=== PATIENT | female | born 1950 | race Caucasian/White ===

== ENCOUNTER 2024-01-28 13:34 | Emergency (ER) | payer MEDICAID ==
[~2024-01-28] VITALS: Ht 160 cm; Wt 63.5 kg
[~2024-01-28 13:34] MED LIST: PSYCH MEDS
[2024-01-28 14:09] VITALS: BP 105/66; PULSE 71; RESP 16; TEMP 98.3; O2SAT 98
[2024-01-28 15:23] LABS: BASOPHILS % 0.7 % (0.0-2.0); EOSINOPHILS % 2.4 % (0.0-5.0); HEMATOCRIT. 38.2 % (36.0-48.0); HEMOGLOBIN. 12.6 g/dL (12.0-16.0); LYMPHOCYTES % 31.5 % (20.0-50.0); MEAN CORPUSCULAR HEMOGLOBIN 29.9 pg (28.0-32.0); MEAN CORPUSCULAR HGB CONC 33.1 g/dL (31.0-37.0); MEAN CORPUSCULAR VOLUME 90.3 fL (81.0-99.0); MEAN PLATELET VOLUME 10.8 fl (7.4-10.4); MONOCYTES % 10.6 % (2.0-8.0); NEUTROPHILS % 54.8 % (40.0-76.0); PLATELET 143 x1000/uL (130-400); RED BLOOD CELL COUNT 4.23 mill/uL (4.2-5.4); WHITE BLOOD COUNT 11.4 x1000/uL (4.5-11.0)
[2024-01-28 15:26] LABS: CHLORIDE 101 mEq/L (98-107); POTASSIUM 3.2 mEq/L (3.5-5.1); SODIUM 141 mEq/L (136-145)
[2024-01-28 15:28] LABS: CALCIUM 9.4 mg/dL (8.7-10.4); CARBON DIOXIDE 37 mEq/L (21-32)
[2024-01-28 15:33] LABS: GLUCOSE 98 mg/dL (70-105); UREA NITROGEN BLOOD 15 mg/dL (9-23)
[2024-01-28 15:34] LABS: TROPONIN I HIGH SENSITIVITY 6 ng/L (3.0-34)
[2024-01-28] MEDS ORDERED: IBUPROFEN 600MG TABLET PO ONE (18:45)
== END 2024-01-28 19:58 | disposition left against medical advice (07) ==
LOC: ER 13:34
DX: S30.0XXA Contusion of lower back and pelvis, initial encounter (principal); F03.90 Unspecified dementia, unspecified severity, without behavioral disturbance, psychotic disturbance, mood disturbance, and anxiety; W19.XXXA Unspecified fall, initial encounter; Y93.89 Activity, other specified; Y92.89 Other specified places as the place of occurrence of the external cause; Y99.8 Other external cause status
CPT/HCPCS: 36415; 71045; 80048; 83880; 84484; 85025; 99284